=== PATIENT | male | born 2000 | race American Indian/Alaskan Native ===

== ENCOUNTER 2024-08-25 08:09 | Outpatient (REF) | payer SELFPAY | END 2024-08-25 08:10 | disposition home or self-care (01) | LOC: RAD 08:09 | PROVIDERS: PCP Nurse Practitioner Family; Visit Provider Nurse Practitioner Family | DX: R06.00 Dyspnea, unspecified (principal) | CPT/HCPCS: 71046; T1013 ==

== ENCOUNTER 2024-11-26 13:37 | Emergency (ER) | payer SELFPAY ==
--- OUTSIDE RECORDS SUMMARY | 2024-11-26 13:39 | XMS_ITS | Clinical Summary ---
Author Organization [facility] Address [address] [place] [id number] Care Team Providers Care Vallez Filter Operator Name Role Phone None Primary Care Provider Unavailabl e Encounters Date Type Department Care Team Description 08/30/2024 12:25 PM FAX MACHINE OPERATOR - 08/30/2024 11:59 PM FAX MACHINE OPERATOR Hospital Encounter [facility] [address] [place] [address] Leida Palacio RN, SCHOOL BUS INSPECTOR Dyspnea, unspecified type 08/30/2024 Travel from Last 3 Months Social History Tobacco Use Types Packs/Day Years Used Date Smoking Tobacco: Never Assessed Sex and Gender Information Value Date Recorded Sex Assigned at Not on file Legal Sex Male 2:33 PM FAX MACHINE OPERATOR Gender Identity Not on file Sexual Orientation Not on file Plan of Treatment Not on file Procedures Procedure Name Priority Date/Time Associated Diagnosis Comments EKG 12 LEAD Routine 08/30/2024 1:38 PM FAX MACHINE OPERATOR Dyspnea, unspecified type from Last 3 Months Results * EKG 12 LEAD (08/30/2024 1:38 PM FAX MACHINE OPERATOR) Interpretation Normal sinus rhythm Normal ECG No previous ECGs available BEYOND NOW Ventricular Rate 77 BPM BEYOND NOW Atrial Rate 77 BPM BEYOND NOW P-R Interval 122 ms BEYOND NOW QRS Duration 102 ms BEYOND NOW QT 350 ms BEYOND NOW QTc 396 ms BEYOND NOW P [place] 47 degrees BEYOND NOW R [place] 78 degrees BEYOND NOW T [place] 20 degrees BEYOND NOW 08/30/2024 1:38 PM FAX MACHINE OPERATOR 09/24/2024 2:57 PM FAX MACHINE OPERATOR Leida Palacio RN, SCHOOL BUS INSPECTOR EKG ORD Final Result [place]OND NOW [place], [place] from Last 3 Months Care Teams Vallez Filter Operator Relationship Specialty Start Date End Date None . PCP - General 08/30/24
[2024-11-26 13:46] VITALS: BP 134/79; PULSE 95; RESP 16; TEMP 37.2; O2SAT 97
--- NOTE | 2024-11-26 14:22 | ED.GENADULT ---
HPI - General Adult General Chief complaint: Sore Throat Stated complaint: sore throat Time Seen by Provider: 11/26/24 13:39 History of Present Illness HPI narrative: since Thursday dealing with fever and sore throat. has been able to drink fluids and eating. eating solid foods is difficult. using Tylenol will helps and during the night sweating and in the morning the fever returns. high fever or after shower has a sharp stabbing pain in the all over head. pain comes and goes fever has been all week. 24-year-old man presenting to the emergency depart with concern of sore throat and feverish. Has been experiencing night sweats as well. No noted rashes. Fourth day of symptoms. Generally hurts a good deal to swallow but able to. No particular exposures. No rhinorrhea. No history of abscess. No noted allergies. Related Data Home Medications ?Medication ?Instructions ?Recorded ?Confirmed No Known Home Medications 11/26/24 11/26/24 Allergies Allergy/AdvReac Type Severity Reaction Status Date / Time No Known Drug Allergies Allergy Verified 11/26/24 14:01 Review of Systems Status of ROS: Reports: 6 or more systems reviewed and unremarkable except as noted in History and below Exam Narrative: Exam Narrative: Pleasant. Breathing easily. No stridor. Lungs appear to be clear. Heart in elevated rate and regular rhythm. Bright erythema jeat-cb-utdrlpog symmetrical swelling of the posterior oropharynx maybe a little more so on the left side versus the right. No exudate. No lymphadenopathy. Skin is warm and dry without apparent rash. Const: Vital Signs, click to edit/add: Vital Signs - 24 hr 11/26/24 13:46 Temperature 99.0 F Pulse Rate [Pulse Oximeter] 95 Respiratory Rate 16 Blood Pressure [Ri ght Upper Arm] 134/79 Pulse Oximetry 97 Oxygen Delivery Me thod Room Air Documenting provider has reviewed patient's vital signs: yes Course Vital Signs Vital signs: Initial Vital Signs Temperature 99.0 F 11/26/24 13:46 Temperature Source Temporal Artery Scan 11/26/24 13:46 Pulse Rate 95 11/26/24 13:46 Respiratory Rate 16 11/26/24 13:46 Blood Pressure 134/79 11/26/24 13:46 Blood Pressure Mean 97 11/26/24 13:46 Blood Pressure Position Sitting 11/26/24 13:46 Pulse Oximetry 97 11/26/24 13:46 Oxygen Delivery Method Room Air 11/26/24 13:46 Vital Signs Temperature 99.0 F 11/26/24 13:46 Pulse Rate 95 11/26/24 13:46 Respiratory Rate 16 11/26/24 13:46 Blood Pressure 134/79 11/26/24 13:46 Pulse Oximetry 97 11/26/24 13:46 Oxygen Delivery Method Room Air 11/26/24 13:46 Temperature 99.0 F 11/26/24 13:46 Pulse Rate 95 11/26/24 13:46 Respiratory Rate 16 11/26/24 13:46 Blood Pressure 134/79 11/26/24 13:46 Pulse Oximetry 97 11/26/24 13:46 Oxygen Delivery Method Room Air 11/26/24 13:46 Medical Decision Making MDM Narrative Medical decision making narrative: I would presume nonspecific viral etiology here but would screen for strep. Considering community prevalence I would screen for COVID as well. I do not think there is an abscess here. Symptoms more significant or appear more infectious than allergic. Screenings are negative here today. Discussed treatment options. I think would benefit from prednisone initially. See patient discharge plan for further discussion Stay well-hydrated. You might sleep under the mist of a cool mist humidifier if possible. Can take up to 800 mg of ibuprofen or up to 1000 mg of acetaminophen per dose. Prescribing prednisone as anti-inflammatory to help with your throat pain and inflammation. If you are not improved in 2 days or seem to be worsening, I have also prescribed amoxicillin; an antibiotic you can fill at that point. You might otherwise suck on ice chips for relief. Can use nhsd-jpp-rpnpwrf throat sprays or lozenges like Chloraseptic or Sucrets. Could also try extra-strength Orajel as an oral anesthetic as discussed. Return for marked increase in persistent pain, inability to swallow saliva, difficulty breathing. Lab Data Lab results reviewed: Yes I reviewed the patient's lab results Labs: Lab Results 11/26/24 Range/Units 14:01 SARS-CoV-2 (PCR) Negative SARS-CoV-2 (Negative) Influenza Type A (PCR) Negative PCR FLU A (Negative) Influenza Type B (PCR) Negative PCR FLU B (Negative) Group A Strep DNA NOT DETECTED (Not Detectd) Discharge Plan Discharge Clinical Impression: Pharyngitis Patient Disposition: Home, Self-Care Condition: Stable Additional Instructions: Stay well-hydrated. You might sleep under the mist of a cool mist humidifier if possible. Can take up to 800 mg of ibuprofen or up to 1000 mg of acetaminophen per dose. Prescribing prednisone as anti-inflammatory to help with your throat pain and inflammation. If you are not improved in 2 days or seem to be worsening, I have also prescribed amoxicillin; an antibiotic you can fill at that point. You might otherwise suck on ice chips for relief. Can use jkfj-wet-zxbzvdg throat sprays or lozenges like Chloraseptic or Sucrets. Could also try extra-strength Orajel as an oral anesthetic as discussed. Return for marked increase in persistent pain, inability to swallow saliva, difficulty breathing. Mant?ngase marko hidratado. Si es posible, puede dormir bajo el vapor de un humidificador de vapor fr?o. Puede tod hasta 800 mg de ibuprofeno o hasta 1000 mg de acetaminof?n por dosis. Se le receta prednisona keith antiinflamatorio para aliviar el dolor y la inflamaci?n de garganta. Si no mejora en 2 d?as o parece estar empeorando, tambi?n le he recetado amoxicilina; un antibi?nawaf que puede surtir en prema momento. Tambi?n puede chupar trocitos de hielo para aliviar el dolor. Puede usar aerosoles o pastillas para la garganta de venta larry keith Chloraseptic o Sucrets. Tambi?n puede probar Orajel extrafuerte keith anest?sico oral, keith se mencion?. Regrese por un aumento marcado del dolor persistente, incapacidad para tragar saliva y dificultad para respirar. Activity Level: No Restrictions Discharge Diet: Regular Prescriptions: No Action No Known Home Medications Follow Up/Referrals: Leida Palacio [Primary Care Provider] - Stand Alone Forms: [facility] Info Instructions
[2024-11-26 14:44] LABS: Strep A DNA Probe* NOT DETECTED (Not Detectd)
[2024-11-26 14:59] LABS: PCR FLU A Negative PCR FLU A (Negative); PCR FLU B Negative PCR FLU B (Negative); SARS PCR* Negative SARS-CoV-2 (Negative)
--- OUTSIDE RECORDS SUMMARY | 2024-11-26 15:03 | XMS_ITS | Clinical Summary ---
Author Organization [facility] Address [address] [place] [id number] Care Team Providers Care Painter Name Role Phone None Primary Care Provider Unavailabl e Encounters Date Type Department Care Team Description 08/30/2024 12:25 PM PROPERTY MAINTENANCE TECHNICIAN - 08/30/2024 11:59 PM PROPERTY MAINTENANCE TECHNICIAN Hospital Encounter [facility] [address] [place] [address] Leida Palacio RN, SECURITY GUARD Dyspnea, unspecified type 08/30/2024 Travel from Last 3 Months Social History Tobacco Use Types Packs/Day Years Used Date Smoking Tobacco: Never Assessed Sex and Gender Information Value Date Recorded Sex Assigned at Not on file Legal Sex Male 2:33 PM PROPERTY MAINTENANCE TECHNICIAN Gender Identity Not on file Sexual Orientation Not on file Plan of Treatment Not on file Procedures Procedure Name Priority Date/Time Associated Diagnosis Comments EKG 12 LEAD Routine 08/30/2024 1:38 PM PROPERTY MAINTENANCE TECHNICIAN Dyspnea, unspecified type from Last 3 Months Results * EKG 12 LEAD (08/30/2024 1:38 PM PROPERTY MAINTENANCE TECHNICIAN) Interpretation Normal sinus rhythm Normal ECG No previous ECGs available BEYOND NOW Ventricular Rate 77 BPM BEYOND NOW Atrial Rate 77 BPM BEYOND NOW P-R Interval 122 ms BEYOND NOW QRS Duration 102 ms BEYOND NOW QT 350 ms BEYOND NOW QTc 396 ms BEYOND NOW P [place] 47 degrees BEYOND NOW R [place] 78 degrees BEYOND NOW T [place] 20 degrees BEYOND NOW 08/30/2024 1:38 PM PROPERTY MAINTENANCE TECHNICIAN 09/24/2024 2:57 PM PROPERTY MAINTENANCE TECHNICIAN Leida Palacio RN, SECURITY GUARD EKG ORD Final Result [facility] NOW [place], [place] from Last 3 Months Care Teams Painter Relationship Specialty Start Date End Date None . PCP - General 08/30/24
--- NOTE | 2024-11-26 16:55 | ED.NURSE ---
Pt's printed prescriptions were found in the parking lot, called pt via the instructor of spanish and let pt know to come back to [employer] driver his prescriptions. Pt in agreement with plan and will return to [employer] driver his prescriptions.
== END 2024-11-26 15:32 | disposition home or self-care (01) ==
PROVIDERS: Emergency Provider Family Medicine; PCP Nurse Practitioner Family
DX: J02.9 Acute pharyngitis, unspecified (principal); R50.9 Fever, unspecified
CPT/HCPCS: 87637; 87651; 99283